=== PATIENT | male | born 2005 | race Caucasian/White ===

== ENCOUNTER 2023-07-01 18:58 | Emergency (ER) | payer OTHER ==
[2023-07-01 19:47] VITALS: BP 148/73; O2SAT 100
[2023-07-01] MEDS ORDERED: predniSONE 20 MG TABLET PO STA (20:42)
[2023-07-01] MEDS ORDERED: DOXYCYCLINE 100 MG TABLET PO STA (20:42)
--- NOTE | 2023-07-01 20:45 | ED Physician Documentation ---
History of Present Illness - Stated complaint Stated Complaint: LT KNEE INSECT BITE - Chief complaint Chief Complaint: Ext Problem - History obtained from History obtained from: Patient - History of Present Illness Timing: How many days ago (2) Pain level max: 2 Pain level now: 2 - Additonal information Additional information: 17-year-old male states that he has an insect bite to the left knee. He states that he started noticed that become warm, swollen and red today. Came in for evaluation. Described as itching. No fevers. No chills. Nothing makes it better or worse. Review of Systems Constitutional: denies: Fever, Chills GI: denies: Vomiting, Diarrhea Musculoskeletal: denies: Neck pain, Back pain Neurologic: denies: Headache PD PAST MEDICAL HISTORY - Past Medical History Past Medical History: No Cardiovascular: None Respiratory: None Neuro: None Endocrine/Autoimmune: None GI: None : None HEENT: None Psych: None Musculoskeletal: None Derm: None - Past Surgical History Past Surgical History: No - Present Medications Home Medications: Ambulatory Orders Medication Instructions Recorded Confirmed Doxycycline Monohydrate 100 mg PO BID #14 cap 07/01/23 predniSONE [Deltasone] 20 mg PO DAILY #4 tablet 07/01/23 - Allergies Allergies/Adverse Reactions: Allergies Allergy/AdvReac Type Severity Reaction Status Date / Time No Known Drug Allergies Allergy Verified 07/01/23 19:08 - Social History Does the pt smoke?: No Smoking Status: Never smoker Does the pt drink ETOH?: No Does the pt have substance abuse?: No - Immunizations Immunizations are current?: Yes - POLST Patient has POLST: No PD ED PE NORMAL - Vitals Vital signs reviewed: Yes - General General: Alert and oriented X 3, No acute distress - Derm Derm: Warm and dry - Extremities Extremities: Other (L knee - 4 x 5 cm area of erythema surrounding a small urticarial area in the middle. No induration or fluctuance. Positive warmth. Neurovascular intact) - Neuro Neuro: Alert and oriented X 3 - Psych Psych: Normal mood, Normal affect Results - Vitals Vitals: Vital Signs - 24 hr 07/01/23 07/01/23 19:04 19:42 Temperature 35.9 C L Heart Rate 89 79 Respiratory 18 18 Rate Blood Pressure 135/77 H 148/73 H O2 Saturation 98 100 Oxygen O2 Source Room air PD Medical Decision Making - ED course Complexity details: considered differential, d/w patient ED course: Patient with left knee insect bite, possible secondary infection. We will place on doxycycline as well as prednisone. Unclear if this is a local allergic reaction versus secondary infection. Patient counseled regarding signs and symptoms for which I believe and urgent re-evaluation would be necessary. Patient with good understanding of and agreement to plan and is comfortable going home at this time This document was made in part using voice recognition software. While efforts are made to proofread this document, sound alike and grammatical errors may occur. Departure - Departure Disposition: 01 Home, Self Care Clinical Impression: Insect bite Qualifiers: Encounter type: initial encounter Site of insect bite: knee Laterality: left Qualified Code(s): S80.262A - Insect bite (nonvenomous), left knee, initial encounter Cellulitis Qualifiers: Site of cellulitis: extremity Site of cellulitis of extremity: lower extremity Laterality: left Qualified Code(s): L03.116 - Cellulitis of left lower limb Condition: Good Instructions: ED Infec Skin Cellulitis, ED Bite Insect Follow-Up: your,doctor in 1 week [Other] Prescriptions: predniSONE [Deltasone] 20 mg PO DAILY #4 tablet Doxycycline Monohydrate 100 mg PO BID #14 cap Comments: Your prescriptions were sent to [facility] in [place]. Please follow-up with your doctor for further care. Please return if you worsen. Forms: PCP List Discharge Date/Time: 07/01/23 20:56
== END 2023-07-01 20:56 | disposition home or self-care (01) ==
LOC: ED 18:58
DX: S80.262A Insect bite (nonvenomous), left knee, initial encounter (principal); W57.XXXA Bitten or stung by nonvenomous insect and other nonvenomous arthropods, initial encounter; L03.116 Cellulitis of left lower limb
CPT/HCPCS: 99282; 99283; A9270; J7512

== ENCOUNTER 2023-12-26 08:00 | Outpatient (CLI) | payer OTHER ==
[2023-12-26 12:43] LABS: RAPID STREP SCREEN Negative (Negative)
== END 2023-12-26 23:59 | disposition home or self-care (01) ==
LOC: LAB.N 08:00
PROVIDERS: ATTEND Emergency Medicine
DX: J02.8 Acute pharyngitis due to other specified organisms (principal)
CPT/HCPCS: 87070; 87430